=== PATIENT | male | born 1965 | race Caucasian/White ===

== ENCOUNTER → 2016-10-23 | Outpatient (CLI) | payer OTHER | LOC: BMCIMAGING 16:45 | PROVIDERS: ATTEND Physician Assistant Medical | DX: M25.571 Pain in right ankle and joints of right foot (principal); M62.838 Other muscle spasm ==

== ENCOUNTER → 2017-03-04 | Outpatient (CLI) | payer OTHER | LOC: BMCIMAGING 14:03 | PROVIDERS: ATTEND Internal Medicine | DX: R22.41 Localized swelling, mass and lump, right lower limb (principal) ==